=== PATIENT | male | born 1960 | race Caucasian/White ===

== ENCOUNTER → 2016-11-22 | Outpatient (CLI) | payer BC ==
--- NOTE | 2016-11-22 09:54 | EKG ---
[address] [address] Measurements Intervals [place] Rate: 73 P: -34 NV: 159 QRS: 62 QRSD: 92 T: 8 QT: 384 QTc: 409 Interpretive Statements SINUS RHYTHM No previous ECG available for comparison Electronically Signed On 11-22-16 12:00:36 MDT by Levi Crooks [email or web address]
== END ==
LOC: MOB EKG 09:39
PROVIDERS: ATTEND Student in an Organized Health Care Education/Training Program
DX: Z82.49 Family history of ischemic heart disease and other diseases of the circulatory system (principal); Z91.89 Other specified personal risk factors, not elsewhere classified
CPT/HCPCS: 93005; 93010